=== PATIENT | male | born 1935 | race Caucasian/White ===

== ENCOUNTER → 2017-12-19 | Day surgery (SDC) | payer OTHER, MEDICARE ==
[~2017-12-19] VITALS: Ht 177.8 cm; Wt 95.3 kg
[~2017-12-19] MED LIST: ALPRAZOLAM0.5 M4 PO; AMLODIPINE BESY10 M1 PO; AMLODIPINE BESYL5 M1 PO; ATORVASTATIN CA80 M1 PO; BYSTOLIC 5MG5 MG PO; BYSTOLIC5 M1 PO; CARVEDILOL25 M1 PO; CHILDREN'S ASPI81 M1 PO; CLONIDINE HCL0.1 MG PO; CLONIDINE0.1 MG PO; CLOPIDOGREL75 M1 PO; EDARBI40 MG PO; ESCITALOPRAM OX10 MG PO; HEPARIN-D525000 UNI1 IV; HYDRALAZINE HCL50 M1 PO; LACTULOSE10 GM/153 PO; LEXAPRO20 M1 PO; LOSARTAN POTASS50 M1 PO; MEDROL DOSEPAK1 PAC PO; MIRALAX17 G1 PO; NEPHROCAPS SOFTG1 MG PO; NORVASC 5MG TAB5 MG PO; PANTOPRAZOLE SO40 M1 PO; PERCOCET 325 MG1 TA2 PO; PROTONIX40 M4 PO; RENVELA800 M1 PO; SIMVASTATIN40 MG PO; THERAGRAN PO; TRIPHROCAPS1 SGL PO; VALIUM5 M1 PO; ZOLPIDEM TARTRAT5 M1 PO
--- NOTE | 2017-12-19 08:26 | Operative Report ---
Operative/Inv Procedure Report Surgery Date: 12/19/17 Name of Procedure: Cataract extraction with intraocular lens implantation right eye Pre-Operative Diagnosis: Age-related cataract right eye Post-Operative Diagnosis: Same Estimated Blood Loss: none Surgeon/Documentation Manager: Sebastián FERRO,Salvatore Roper Anesthesia: local monitored anesthesi Complications: None Operative/Procedure Note Note: Preoperatively the patient was noted to have 20/50 vision in the right eye . The risks, benefits, and alternatives to surgery were discussed at length with the patient. Informed consent was obtained. The patient was brought to the operating room where the right eye was prepped and draped in the normal sterile fashion. A speculum was placed on the right eye with good exposure. A stab incision was made using a paracentesis blade. Intracameral lidocaine was placed. Viscoelastic was used to form the anterior chamber. A clear corneal incision was made using keratome blade. A continuous curvilinear capsulorrhexis was made using a cystotome needle followed by Utrata forceps. There was no extension of the rhexis. Hydrodissection was performed using balanced salt solution. The cataract was removed using a stop and chop technique. Residual cortex was removed using coaxial irrigation and aspiration. The capsule was polished using irrigation and aspiration and the posterior capsule was cleaned using a balanced salt solution jet. There was no residual lens material inside the eye. The capsular bag was reformed using viscoelastic. An intraocular lens PCBOO of power 22.0 was verified and confirmed. It was loaded into an injector and injected into the eye. The lens was placed entirely within the capsular bag. Viscoelastic was evacuated using irrigation and aspiration. The wounds were stromally hydrated and the eye filled to physiologic pressure using balanced salt solution. Intracameral cefuroxime was placed. Speculum was removed and a shield was placed on the eye. The patient was brought to the recovery area without incident. Instructions were given to follow-up the next day for routine postoperative care.
== END ==
LOC: STS 11-06 07:00
DX: H25.9 Unspecified age-related cataract (principal); I12.9 Hypertensive chronic kidney disease with stage 1 through stage 4 chronic kidney disease, or unspecified chronic kidney disease; N18.9 Chronic kidney disease, unspecified; M35.00 Sjogren syndrome, unspecified; I25.10 Atherosclerotic heart disease of native coronary artery without angina pectoris
CPT/HCPCS: J2250; V2632